=== PATIENT | male | born 2000 | race Caucasian/White ===

== ENCOUNTER 2021-05-15 14:01 | Emergency (ER) | payer BC, SELFPAY ==
[2021-05-15 14:15] VITALS: BP 120/65; PULSE 70; RESP 16; TEMP 37; O2SAT 100
--- NOTE | 2021-05-15 14:19 | ED.EYEPROB ---
HPI - Eye Problem General Chief complaint: Eye Problems Stated complaint: Right eye pain Time Seen by Provider: 05/15/21 14:19 Source: patient and RN notes reviewed Mode of arrival: ambulatory Limitations: no limitations History of Present Illness HPI Narrative: 21-year-old male presents concern for right eye pain, redness, itchiness, swelling, tearing. Reports symptoms started yesterday. Reports he is a contact lens wearer, took out his contact lenses after approximately 2 months of wearing. Reports symptoms started after that. He denies any foreign bodies, injury or other trauma to the eye. Reports his eye was not crusted shut this morning. He reports sensitivity to light, he has been wearing sunglasses. chief complaint: eye pain Related Data Allergies Allergy/AdvReac Type Severity Reaction Status Date / Time No Known Allergies Allergy Verified 05/15/21 14:12 Review of Systems Review of Systems: CONSTITUTIONAL: Denies malaise, chills, sweats, or fever. EYES: Denies visual changes. Reports right eye pain, redness, irritation, watery discharge. ENT: Denies rhinorrhea, congestion, sinus pain, otalgia or sore throat. SKIN: Denies rash or itching. NEUROLOGIC: Denies numbness, weakness, or headache. PSYCHIATRIC: Denies anxiety or depression. All systems reviewed & are unremarkable except as noted in HPI and below PMFSH Comments At time of signature, agree with nursing past medical, surgical, social and family history. There is no relevant family history pertinent to the presenting complaint Exam Narrative: GENERAL: Well-appearing, well-nourished, and in no acute distress. HEAD: Normocephalic, atraumatic. EYES: PERRLA, left eye conjunctive and sclera clear, and EOMI. No nystagmus. Right eye sclera and conjunctivae injected with watery discharge, mild upper lid edema, lower eyelid unremarkable, no periorbital edema noted ENT: Nares clear, turbinates pink, no rhinorrhea or epistaxis. Mucous membranes moist. TM pearly russell with sharp light reflex bilaterally; no tragal tenderness. NECK: Supple. CHEST: No respiratory distress. Speaks in full sentences. HEART: Regular rate and rhythm. SKIN: Warm, dry, no visible rash. NEURO: Alert and oriented x3. PSYCH: Normal mood and affect Course Course Emergency Course: Patient is aware of diagnosis, understands and agrees to treatment plan. Anticipatory guidance given. Patient agrees to follow-up as directed and is aware of reasons to seek care at the emergency department. Portions of this record may have been created with voice recognition software Level of Care: Express Care Visit Vital Signs Vital signs: Vital Signs Temperature 98.6 F 05/15/21 14:15 Pulse Rate 70 05/15/21 14:15 Respiratory Rate 16 05/15/21 14:15 Blood Pressure 120/65 05/15/21 14:15 Pulse Oximetry 100 05/15/21 14:15 Temperature 98.6 F 05/15/21 14:15 Pulse Rate 70 05/15/21 14:15 Respiratory Rate 16 05/15/21 14:15 Blood Pressure 120/65 05/15/21 14:15 Pulse Oximetry 100 05/15/21 14:15 Reviewed. MDM - Eye Problem MDM Narrative Medical decision making narrative: Consideration of the following conditions may be warranted for the presenting problem, they are not final diagnoses: Bacterial conjunctivitis, allergic conjunctivitis, viral conjunctivitis, foreign body, blepharitis, chalazion, hordeolum, corneal abrasion, preseptal cellulitis, orbital cellulitis. No evidence of proptosis, ophthalmoplegia, vision loss, pain with eye movement. Exam findings show no acute concerns or changes; patient is non-toxic appearing and is in no distress. Patient is appropriate for outpatient treatment and follow-up. Critical Care Time Critical Care Time Critical Care Time: No Discharge Plan Discharge Clinical Impression: Corneal abrasion Qualifiers: Encounter type: initial encounter Laterality: right Qualified Code(s): S05.01XA - Injury of conjunctiva and corneal abrasion without foreign
== END 2021-05-15 14:30 | disposition home or self-care (01) ==
PROVIDERS: Emergency Provider Nurse Practitioner
DX: S05.01XA Injury of conjunctiva and corneal abrasion without foreign body, right eye, initial encounter (principal); X58.XXXA Exposure to other specified factors, initial encounter
CPT/HCPCS: 99213; G0463

== ENCOUNTER 2021-09-04 16:57 | Emergency (ER) | payer BC, MEDICAID, SELFPAY ==
[2021-09-04 17:05] VITALS: BP 126/70; PULSE 99; RESP 16; TEMP 36.2; O2SAT 99
--- NOTE | 2021-09-04 17:13 | ED.EYEPROB ---
HPI - Eye Problem General Chief complaint: Eye Problems Stated complaint: ulcer and irritation in right eye Time Seen by Provider: 09/04/21 17:14 Source: patient and RN notes reviewed Mode of arrival: ambulatory Limitations: no limitations History of Present Illness HPI Narrative: 21-year-old male presents with concern for right eye redness and irritation. He reports symptoms started approximately a week ago. He reports drainage that ranges from clear to green. Reports drainage is worse when he wakes up in the morning. He denies vision changes, pain, injury. Reports he had a corneal abrasion couple months ago after keeping his contact lenses in for an extended period of time, since then he has not been wearing his corrective lenses and does not have glasses. chief complaint: eye redness Related Data Allergies Allergy/AdvReac Type Severity Reaction Status Date / Time No Known Allergies Allergy Verified 09/04/21 17:07 Review of Systems Review of Systems: CONSTITUTIONAL: Denies malaise, chills, sweats, or fever. EYES: Denies visual changes. Reports right eye redness, irritation, discharge. ENT: Denies rhinorrhea, congestion, sinus pain, otalgia or sore throat. SKIN: Denies rash or itching. NEUROLOGIC: Denies numbness, weakness, or headache. PSYCHIATRIC: Denies anxiety or depression. All systems reviewed & are unremarkable except as noted in HPI and below PMFSH Comments At time of signature, agree with nursing past medical, surgical, social and family history. There is no relevant family history pertinent to the presenting complaint Exam Narrative: GENERAL: Well-appearing, well-nourished, and in no acute distress. HEAD: Normocephalic, atraumatic. EYES: PERRLA, sclera clear, and EOMI. No nystagmus. Right sclera and conjunctivae injected, green discharge noted. Upper and lower eyelid unremarkable, no periorbital edema noted ENT: Nares clear, turbinates pink, no rhinorrhea or epistaxis. Mucous membranes moist. TM pearly russell with sharp light reflex bilaterally; no tragal tenderness. NECK: Supple. CHEST: No respiratory distress. Speaks in full sentences. HEART: Regular rate and rhythm. SKIN: Warm, dry, no visible rash. NEURO: Alert and oriented x3. PSYCH: Normal mood and affect Course Course Emergency Course: Patient is aware of diagnosis, understands and agrees to treatment plan. Anticipatory guidance given. Patient agrees to follow-up as directed and is aware of reasons to seek care at the emergency department. Portions of this record may have been created with voice recognition software Level of Care: Express Care Visit Vital Signs Vital signs: Vital Signs Temperature 97.2 F L 09/04/21 17:05 Pulse Rate 99 09/04/21 17:05 Respiratory Rate 16 09/04/21 17:05 Blood Pressure 126/70 09/04/21 17:05 Pulse Oximetry 99 09/04/21 17:05 Temperature 97.2 F L 09/04/21 17:05 Pulse Rate 99 09/04/21 17:05 Respiratory Rate 16 09/04/21 17:05 Blood Pressure 126/70 09/04/21 17:05 Pulse Oximetry 99 09/04/21 17:05 Reviewed. MDM - Eye Problem MDM Narrative Medical decision making narrative: Consideration of the following conditions may be warranted for the presenting problem, they are not final diagnoses: Bacterial conjunctivitis, allergic conjunctivitis, viral conjunctivitis, foreign body, blepharitis, chalazion, hordeolum, corneal abrasion, preseptal cellulitis, orbital cellulitis. No evidence of proptosis, ophthalmoplegia, vision loss, pain with eye movement. Exam findings show no acute concerns or changes; patient is non-toxic appearing and is in no distress. Patient is appropriate for outpatient treatment and follow-up. Critical Care Time Critical Care Time Critical Care Time: No Discharge Plan Discharge Clinical Impression: Bacterial conjunctivitis Patient Disposition: Home, Self-Care Condition: Stable Instructions: Conjunctivitis (ED) Additional Instructions: Do not touc
== END 2021-09-04 17:28 | disposition home or self-care (01) ==
PROVIDERS: Emergency Provider Nurse Practitioner
DX: H10.9 Unspecified conjunctivitis (principal)
CPT/HCPCS: 99213; G0463